=== PATIENT | female | born 1990 | race Caucasian/White ===

== ENCOUNTER → 2020-07-22 11:02 | Outpatient (CLI) | payer SELFPAY | PROVIDERS: Visit Provider Physician Assistant | DX: N89.8 Other specified noninflammatory disorders of vagina (principal) | CPT/HCPCS: 87210 ==

== ENCOUNTER → 2024-11-01 08:25 | Outpatient (CLI) | payer BC, SELFPAY ==
[2024-11-01 08:50] LABS: Hematocrit 40.4 % (36-46); Hemoglobin 13.6 g/dL (12.0-16.0); Mean Corpuscular HGB Conc 33.5 % (30-36); Mean Corpuscular Hemoglobin 30.8 PG (26-34); Mean Corpuscular Volume 91.8 fL (80-100); Platelet Count 386 X10^3/uL (150-400); Red Cell Distribution Width 13.2 % (11.6-14.8); White Blood Cell Count 7.9 X10^3/uL (4.5-11.0)
[2024-11-01 09:27] LABS: HEMOLYSIS < 15 (0-50); Iron 142 ug/dL (37-170)
[2024-11-01 09:31] LABS: Cholesterol 202 mg/dL (140-199); HDL Cholesterol 78 mg/dL (40-60); LDL Cholesterol Calculated 108 mg/dL (<100); Triglycerides 80 mg/dL (35-150)
[2024-11-01 09:38] LABS: Percent Iron Saturation 49 % (15-50); Total Iron Binding Capacity 292 ug/dL (265-497); Transferrin 282 mg/dL (206-381)
[2024-11-01 09:58] LABS: TSH w/ Reflex to FT4 3.13 uIU/mL (0.47-4.68)
[2024-11-01 10:03] LABS: Ferritin 38 ng/mL (6-137)
== END ==
PROVIDERS: PCP Family Medicine; Referring Provider Family Medicine; Visit Provider Family Medicine
DX: Z13.220 Encounter for screening for lipoid disorders (principal); D64.9 Anemia, unspecified; E03.1 Congenital hypothyroidism without goiter
CPT/HCPCS: 36415; 80061; 82728; 83540; 83550; 84443; 85027

== ENCOUNTER → 2024-11-15 15:45 | Outpatient (CLI) | payer BC, SELFPAY | PROVIDERS: PCP Family Medicine; Visit Provider Family Medicine | DX: Z11.3 Encounter for screening for infections with a predominantly sexual mode of transmission (principal) | CPT/HCPCS: 87491; 87563; 87591 ==

== ENCOUNTER → 2024-12-05 09:20 | Outpatient (CLI) | payer BC, SELFPAY ==
--- NOTE | 2024-12-05 09:21 | DI.ECHO.S_ITS ---
[facility] : : [address] : : [place] [address] : : [id number] : : Phone: [phone] Echocardiogram Report + + :Name: ZAIN PRIDE Study Date: 12/05/2024 Height: 67 in : [facility] ReadingLocation: Weight: 165 lb : : Gender: Female BSA: 1.9 m2 : :: 1990 Age: 34 yrs BP: 110/75 mmHg: :Reason For Study: FAMILY HISTORY OF BICUSPID AORTIC VALVE : :Ordering Physician: : :RONY KHALIL Performed By: Anastasiia Fernandez : :Referring: RONY KHALIL : + + Interpretation Summary The ejection fraction is estimated to be 55-60%. Diastolic parameters suggest probable normal left ventricular diastolic function and normal filling pressures. The right ventricle is normal in size and function. The aortic valve is trileaflet. There is mild tricuspid regurgitation. Pulmonary artery pressures cannot be estimated because of the lack of a measurable TR jet velocity but the IVC suggests a CVP of around 3 mmHg. Procedure: A two-dimensional transthoracic echocardiogram with color flow and Doppler was performed. The study quality was technically adequate. There is no prior echocardiogram noted for this patient. The patient was in sinus rhythm with heart rates between 62-76 bpm during the exam. Left Ventricle: The left ventricle is normal in size and wall thickness. The ejection fraction is estimated to be 55-60%. Diastolic parameters suggest probable normal left ventricular diastolic function and normal filling pressures. Right Ventricle: The right ventricle is normal in size and function. Atria: The left atrial size is normal. Right atrial size is normal. There is no Doppler evidence for an interatrial shunt. Mitral Valve: The mitral valve is normal. There is trace mitral regurgitation. Aortic Valve: The aortic valve is trileaflet. The aortic valve opens well. There is no aortic valve stenosis. No aortic regurgitation is present. Tricuspid Valve: The tricuspid valve leaflets are thin and pliable. There is mild tricuspid regurgitation. Pulmonary artery pressures cannot be estimated because of the lack of a measurable TR jet velocity but the IVC suggests a CVP of around 3 mmHg. Pulmonic Valve: The pulmonic valve is not well visualized. There is no pulmonic valvular regurgitation. Great Vessels: The aortic root is normal size. The dimensions of the ascending aorta are normal. The IVC is of normal diameter and collapses greater than 50% with a sniff. This suggests a low right atrial pressure of 3 mm Hg. Pericardium/ Pleura There is no pericardial effusion. There is no pleural effusion. MMode/2D Measurements & Calculations LVIDd: 4.5 cm LVOT diam: 2.1 cm LVIDs: 3.1 cm Ao root diam: 3.2 cm FS: 32.5 % asc Aorta Diam: 2.9 cm EPSS: 0.46 cm Ao Arch Diam (Prox Trans): 2.2 cm IVSd: 0.70 cm LVPWd: 0.75 cm LV purdy. diameter/BSA (cm/m^2): 2.4 LV sys. diameter/BSA (cm/m^2): 1.6 LA A2 area: 16.2 cm2 RA long axis: 5.0 cm LA A4 area: 16.2 cm2 RA area: 13.9 cm2 LA length (vol): 4.9 cm RA vol: 32.6 ml LA vol: 45.4 ml RA : 17.5 ml/m2 LA vol index: 24.4 ml/m2 IVC diam: 1.1 cm RVD1 (basal): 4.0 cm RVD2 (mid): 3.2 cm TAPSE: 2.0 cm Doppler Measurements & Calculations Ao V2 max: 112.7 cm/sec LVOT Max Karthikeyan: 113.0 cm/sec Ao V2 mean: 78.5 cm/sec LV V1 max P.1 mmHg Ao max P.1 mmHg LV V1 VTI: 21.9 cm Ao mean P.7 mmHg ROXANA(I,D): 3.1 cm2 Ao V2 VTI: 24.5 cm ROXANA(V,D): 3.5 cm2 sev ratio: 0.89 ROXANA indexed to BSA (cm^2/m^2): 1.7 MV E max karthikeyan: 64.2 cm/sec TR max karthikeyan: 207.6 cm/sec MV A max karthikeyan: 39.1 cm/sec TR max P.2 mmHg MV E/A: 1.6 PA V2 max: 78.3 cm/sec Med Peak E' Karthikeyan: 12.8 cm/sec PA V2 mean: 53.8 cm/sec E/E' med: 5.0 PA mean P.3 mmHg Lat Peak E' Karthikeyan: 11.9 cm/sec PA pr(Accel): 16.1 mmHg E/E' lat: 5.4 E/e' average: 5.2 MV dec time: 0.23 sec SV(LVOT): 76.1 ml Reading Physician:08:25 PM
== END ==
LOC: ECHO 09:21
PROVIDERS: PCP Family Medicine; Referring Provider Family Medicine; Visit Provider Family Medicine
DX: I07.1 Rheumatic tricuspid insufficiency (principal); G44.209 Tension-type headache, unspecified, not intractable; Z82.49 Family history of ischemic heart disease and other diseases of the circulatory system; Z82.79 Family history of other congenital malformations, deformations and chromosomal abnormalities
CPT/HCPCS: 93306